=== PATIENT | female | born 1980 | race Two or more races ===

== ENCOUNTER → 2016-05-10 | Outpatient (CLI) | payer BC ==
[2016-05-10 17:38] LABS: CH 31.5; CHCM 36.8; HCT 35.7 % (34.0-46.0); HDW 3.22; MCH 31.5 pg (25.0-35.0); MCHC 36.5 g/dL (31.0-37.0); MCV 86.3 fL (80.0-100.0); Mean Platelet Volume 8.3; RBC 4.13 m/uL (3.80-5.40); RDW 13.1 % (11.5-15.5); WBC 7.1 k/uL (3.8-10.6)
[2016-05-10 18:00] LABS: Glucose 99 mg/dL (74-99); Non-African American GFR(MDRD) >60 (>60 ml/min/1.73 sqM)
[2016-05-10 18:32] LABS: Hepatitis B Surface Ag Index 0.09
[2016-05-12 06:22] LABS: Toxoplasma Antibody (IgG) <3.0 IU/mL (<7.2)
[2016-05-14 18:05] LABS: HIV-1/HIV-2 Ab Screen NONREAC (NON REAC)
== END ==
LOC: LABWHC1 16:53
PROVIDERS: ATTEND Obstetrics & Gynecology
CPT/HCPCS: 36415; 82565; 82947; 85027; 86762; 86777; 86778; 86780; 86850; 86900; 86901; 87340; 87389

== ENCOUNTER 2016-07-13 13:15 | Outpatient (CLI) | payer BC ==
[2016-07-13 14:07] LABS: Amorphous Sediment,Urine Many /hpf; Appearance,Urine Turbid (Clear); Bilirubin,Urine Negative (Negative); Glucose,Urine (UA) Negative (Negative); Ketones,Urine Negative (Negative); Leukocyte Esterase,Urine Large (Negative); Nitrite,Urine Negative (Negative); PH, Urine 5.5 (5.0-8.0); Particle Count 62325; Protein,Urine 1+ (Negative); Specific Gravity,Urine 1.023 (1.001-1.035); Squamous Epithelial Cell,Urine 7 /hpf (0-4); UA Billing (MACRO vs. MICRO) MICRO; Urobilinogen,Urine <2.0 mg/dL (<2.0); WBC,Urine 21 /hpf (0-5)
[2016-07-13] MEDS ORDERED: Rhogam IMMUNE GLOBULIN 1,500 UNIT/1 ML IM ONE (15:15)
--- NOTE | 2016-07-13 16:08 | US ---
EXAMINATION TYPE: US OB >= 14 wk fetus DATE OF EXAM: 07/13/2016 3:56 PM COMPARISON: None CLINICAL HISTORY: bleedingPt states light vaginal bleeding TECHNIQUE: Transabdominal (TA) GESTATIONAL AGE / DATING Physician Established: (22 weeks/6 days) EDC: 11/10/2016 Dates by LMP: Unknown Dates by First Scan: No prior Dates by Current Scan: (22 weeks/3 days) EDC: 11/13/2016 SURVEY IUP: Single PLACENTA: Posterior PREVIA: No Previa THU: cm CERVICAL LENGTH (transabdominal: norm > 3.0cm): 3.4 cm BIOMETRY PRESENTATION: Breech BPD: 5.5 cm 22 weeks / 6 days HC: 20.6 cm 22 weeks / 5 days AC: 18.1 cm 22 weeks / 6 days FL: 3.9 cm 22 weeks / 3 days ESTIMATED WEIGHT IN GRAMS: 526 grams ESTIMATED WEIGHT IN LBS/OZS: 1 lbs. 3 oz. WEIGHT PERCENTAGE BASED ON ESTABLISHED DATES: 34.8% HC/AC: 1.14 Normal FL/AC: 21 Normal HEART RATE: 160 bpm RHYTHM: Normal Single, viable IUP/ No abnormality visualized to account for pt's symptoms Results given to L&D at time of exam IMPRESSION: Single, viable IUP/ No abnormality visualized to account for pt's symptoms
[2016-07-13 17:16] VITALS: BP 125/90; PULSE 120; RESP 18; TEMP 96.7
== END 2016-07-13 16:45 | disposition home or self-care (01) ==
LOC: FBPOP 13:15
PROVIDERS: ATTEND Obstetrics & Gynecology
DX: O26.92 Pregnancy related conditions, unspecified, second trimester (principal); Z3A.22 22 weeks gestation of pregnancy
CPT/HCPCS: 99215; 96372; 86900; 86901; 86850; 81001; 76805; J2791

== ENCOUNTER → 2016-08-05 | Outpatient (CLI) | payer BC ==
[2016-08-05 17:07] LABS: CH 33.1; CHCM 37.1; HCT 32.5 % (34.0-46.0); HDW 3.69; HGB 11.9 gm/dL (11.4-16.0); Hyperchromasia Slight; MCH 32.9 pg (25.0-35.0); MCHC 36.5 g/dL (31.0-37.0); MCV 90.1 fL (80.0-100.0); Mean Platelet Volume 8.1; Poikilocytosis Slight; RBC 3.61 m/uL (3.80-5.40); RDW 14.1 % (11.5-15.5); WBC 13.1 k/uL (3.8-10.6)
[2016-08-05 17:10] LABS: Appearance,Urine Cloudy (Clear); Bilirubin,Urine Negative (Negative); Glucose,Urine (UA) 3+ (Negative); Ketones,Urine Negative (Negative); Leukocyte Esterase,Urine Large (Negative); Mucus,Urine Many /hpf; Nitrite,Urine Negative (Negative); PH, Urine 5.5 (5.0-8.0); Particle Count 17117; Protein,Urine 1+ (Negative); RBC,Urine 7 /hpf (0-5); Specific Gravity,Urine 1.031 (1.001-1.035); Squamous Epithelial Cell,Urine 17 /hpf (0-4); UA Billing (MACRO vs. MICRO) MICRO; WBC,Urine 65 /hpf (0-5)
== END | disposition home or self-care (01) ==
LOC: LABWHC1 15:29
PROVIDERS: ATTEND Obstetrics & Gynecology
DX: Z34.82 Encounter for supervision of other normal pregnancy, second trimester (principal)
CPT/HCPCS: 36415; 81001; 82950; 85027; 86850; 86870; 86880; 87086

== ENCOUNTER → 2016-08-16 | Outpatient (CLI) | payer BC ==
[2016-08-16 12:57] LABS: Glucose 3 Hour, Gest 88 mg/dL
== END | disposition home or self-care (01) ==
LOC: LABWHC1 08:26
PROVIDERS: ATTEND Obstetrics & Gynecology
DX: Z34.82 Encounter for supervision of other normal pregnancy, second trimester (principal); Z3A.00 Weeks of gestation of pregnancy not specified
CPT/HCPCS: 36415; 82951; 82952

== ENCOUNTER → 2016-09-13 | Outpatient (CLI) | payer BC | END | disposition home or self-care (01) | LOC: LABWHC1 07:31 | PROVIDERS: ATTEND Obstetrics & Gynecology | DX: O99.810 Abnormal glucose complicating pregnancy (principal); Z3A.00 Weeks of gestation of pregnancy not specified | CPT/HCPCS: 36415; 82951; 82952 ==

== ENCOUNTER → 2016-09-16 | Outpatient (CLI) | payer BC ==
[2016-09-16 11:19] LABS: Glucose 3 Hour, Gest 67 mg/dL
== END | disposition home or self-care (01) ==
LOC: LABWHC1 07:24
PROVIDERS: ATTEND Obstetrics & Gynecology
DX: O99.810 Abnormal glucose complicating pregnancy (principal); Z3A.00 Weeks of gestation of pregnancy not specified
CPT/HCPCS: 36415; 82951; 82952

== ENCOUNTER → 2016-10-06 | Outpatient (CLI) | payer BC | END | disposition home or self-care (01) | LOC: LABWHC1 16:19 | PROVIDERS: ATTEND Obstetrics & Gynecology | DX: Z34.90 Encounter for supervision of normal pregnancy, unspecified, unspecified trimester (principal) | CPT/HCPCS: 86850 ==

== ENCOUNTER 2016-11-16 12:28 | Inpatient (IN) | payer BC ==
[2016-11-16] MEDS ORDERED: OXYTOCIN 10 UNIT/ML 1 ML VIAL IM PRN (12:59)
[2016-11-16] MEDS ORDERED: LIDOCAINE 1% (PF) 10 MG/ML (30 ML SDV) SQ PRN (12:59)
[2016-11-16] MEDS ORDERED: CARBOPROST TROMETHAMINE 250 MCG/ML 1 ML AMP IM PRN (12:59)
[2016-11-16] MEDS ORDERED: TERBUTALINE 1 MG/ML VIAL SQ PRN (12:59)
[2016-11-16] MEDS ORDERED: METHYLERGONOVINE 0.2 MG/ML 1 ML AMP IM PRN (12:59)
[2016-11-16] MEDS ORDERED: OXYTOCIN 20 UNITS/1000 ML NS 1,000 ML IV SCH (13:00)
[2016-11-16] MEDS: LACTATED RINGERS 1,000 ML IV SCH ×2 (13:05→17:02)
[2016-11-16 13:20] LABS: Basophils % (A) 0 %; CH 32.8; CHCM 37.2; Eosinophils # (A) 0.1 k/uL (0-0.7); Eosinophils % (A) 1 %; HCT 35.6 % (34.0-46.0); HDW 3.43; HGB 12.4 gm/dL (11.4-16.0); Hyperchromasia Slight; Luc # (Auto) 0.24; Luc % (Auto) 2; Lymphocytes # (A) 1.6 k/uL (1.0-4.8); Lymphocytes % (A) 11 %; MCH 30.9 pg (25.0-35.0); MCHC 34.8 g/dL (31.0-37.0); MCV 88.8 fL (80.0-100.0); Mean Platelet Volume 8.7; Monocytes # (A) 0.8 k/uL (0-1.0); Monocytes % (A) 6 %; Neutrophils # (A) 11.6 k/uL (1.3-7.7); Neutrophils % (A) 81 %; Poikilocytosis Slight; RBC 4.01 m/uL (3.80-5.40); WBC 14.3 k/uL (3.8-10.6)
[2016-11-16 13:34] VITALS: BMI 25.8
--- NOTE | 2016-11-16 16:24 | P.HPOB ---
History of Present Illness H&P Date: 11/16/16 Chief Complaint: Uterine at term:HANK Marquez is a 36-year-old at 40 weeks gestation who started leaking fluid at approximately 80 on this morning. She was seen in my office and noted to have a oligohydramnios on ultrasound was sent to labor and delivery where an amnio sure was positive. Her course has been compensated by spotting throughout the it is occurred all the way up until approximately 28 weeks when it finally slow down. She did initially feel her Glucola screen but subsequent screens and an evaluation with maternal medicine revealed her to not be gestationally diabetic. Her course otherwise was fine and she is done very well the last several weeks. She is dilated to 3/2 cm 100% effaced -1 station. heart tones were in the 130s to 140s and reactive. Pertinent labs did include A- blood type Rh antibody was negative, rubella immune, hepatitis B surface antigen as well as RPR and GBS were all negative. On physical exam vital signs are stable and afebrile. Heart regular, lungs clear, extremities without pain. Osteopathic exams unremarkable. Gravid uterus is noted. Assessment intrauterine at term. Plan expect spontaneous vaginal delivery. Past Medical History Past Medical History: No Reported History History of Any Multi-Drug Resistant Organisms: None Reported Additional Past Surgical History / Comment(s): cyst as a child Additional Psychological History / Comment(s): undiagnosed anxiety issues/ depression Smoking Status: Never smoker Past Alcohol Use History: None Reported Past Drug Use History: None Reported - Past Family History Mother Additional Family Medical History / Comment(s): mother has lymphoma- in remission Medications and Allergies Home Medications Medication Instructions Recorded Confirmed Type No.77/Iron Asp Gly/FA 1 tab PO DAILY 07/13/16 11/16/16 History [Prenate Star Tablet] Amoxicillin 500 mg PO Q8H 11/16/16 11/16/16 History Allergies Allergy/AdvReac Type Severity Reaction Status Date / Time No Known Allergies Allergy Verified 11/16/16 12:56 Exam Osteopathic Statement: *. No significant issues noted on an osteopathic structural exam other than those noted in the History and Physical/Consult. - Vital Signs Vital signs: Vital Signs Temp Pulse Resp BP Pulse Ox 11/16/16 13:18 97.5 F L 103 H 18 134/82 97 Intake and Output 11/16/16 11/16/16 11/16/16 06:59 14:59 22:59 Other: # Voids 1 Weight 72.575 kg Patient Weight 11/17/16 06:59 Weight 72.575 kg Results Result Diagrams: 11/16/16 13:08 Abnormal Lab Results - Last 24 Hours (Table) 11/16/16 Range/Units 13:08 WBC 14.3 H (3.8-10.6) k/uL Neutrophils # 11.6 H (1.3-7.7) k/uL
[2016-11-16] MEDS ORDERED: BUPIVACAINE (PF) 0.25% 30 ML VIAL ONE (16:38)
[2016-11-16] MEDS ORDERED: SODIUM CHLORIDE 0.9% 100 ML BAG ONE (16:38)
[2016-11-16] MEDS ORDERED: fentaNYL (PF) 50 MCG/ML 5 ML AMP ONE (16:38)
[2016-11-17] MEDS: AMOXICILLIN 500 MG PO SCH ×3 (00:36→18:36)
[2016-11-17] MEDS ORDERED: AMPICILLIN 2,000 MG in SODIUM CHLORIDE 0.9% 100 ML IVPB ONE (01:00)
[2016-11-17] MEDS: LACTATED RINGERS 1,000 ML IV SCH (03:06)
[2016-11-17] MEDS ORDERED: AMPICILLIN 1,000 MG in SODIUM CHLORIDE 0.9% 50 ML IVPB SCH (05:00)
[2016-11-17] MEDS ORDERED: diphenhydrAMINE 50 MG/ML 1 ML VIAL IVP PRN ×4 (05:17→05:27)
[2016-11-17] MEDS ORDERED: diphenhydrAMINE 25 MG CAP PO PRN ×2 (05:17→05:27)
[2016-11-17] MEDS ORDERED: ZOLPIDEM 5 MG TAB PO PRN ×2 (05:17→05:27)
[2016-11-17] MEDS ORDERED: SIMETHICONE 80 MG CHEWABLE PO PRN ×2 (05:17→05:27)
[2016-11-17] MEDS ORDERED: LANOLIN CREAM 5 GM TUBE TOPICAL PRN ×2 (05:17→05:27)
[2016-11-17] MEDS ORDERED: diphenhydrAMINE 50 MG CAP PO PRN ×2 (05:17→05:27)
[2016-11-17] MEDS ORDERED: HYDROCORTISONE 2.5% RECTAL CREAM 30 GM TUBE RECTAL PRN ×2 (05:17→05:27)
[2016-11-17] MEDS ORDERED: WITCH HAZEL 1 EACH MED..PAD TOPICAL PRN ×2 (05:17→05:27)
[2016-11-17] MEDS ORDERED: Acetaminophen-Codeine 300-30mg TAB PO PRN ×2 (05:17)
[2016-11-17] MEDS ORDERED: BENZOCAINE/MENTHOL SPRAY 1 GM/SPRAY AEROSOL TOPICAL PRN ×2 (05:17→05:27)
[2016-11-17] MEDS ORDERED: IBUPROFEN 600 MG TAB PO PRN (05:17)
[2016-11-17] MEDS ORDERED: Rhogam IMMUNE GLOBULIN 1,500 UNIT/1 ML IM ONE (05:17)
[2016-11-17] MEDS ORDERED: ACETAMINOPHEN TAB 325 MG TAB PO PRN ×2 (05:17→05:27)
--- NOTE | 2016-11-17 05:23 | P.PROBDLV ---
Vaginal Delivery Note - . Vaginal Delivery Note: 36-year-old presents at 40 weeks 6 days with spontaneous rupture membranes at 8 AM on 11/16/2016. She was 3 cm dilated 90% effaced and -1 station. She is roselia irregularly. heart tones 140-145 with moderate variability and reactive. Pitocin augmentation was started. When she was uncomfortable she did get an epidural. She progressed slowly throughout the day and night. Her cervix was completely dilated around 1:30 in the morning on 11/17/2016. Ampicillin had been started for prolonged rupture of membranes. Patient was not pushing effectively and she did labor down. The epidural was turned off. She then did push for a few hours, and delivered a viable female over midline episiotomy at 4:55 AM. Head delivered OA, nuchal cord 2 easily reduced, anterior shoulder which was the left shoulder delivered with gentle downward traction followed by posterior shoulder and rest of body. Nose and mouth bulb suctioned, cord clamped and cut, placed on mother's abdomen. Apgars 9, 9, weight 6 lbs. 5 oz. Placenta delivered spontaneously, intact with three-vessel cord at 4:57 AM. Vagina, cervix, and perineum were inspected. Second-degree midline episiotomy was repaired with 3- 0 Vicryl. Estimated blood loss 200 mL. Mother and baby in stable condition.
[2016-11-17] MEDS ORDERED: OXYTOCIN 20 UNITS/1000 ML NS 1,000 ML IV SCH (05:30)
[2016-11-17] MEDS: IBUPROFEN 600 MG TAB PO PRN ×2 (05:56→15:32)
[2016-11-17] MEDS ORDERED: SENNOSIDES-DOCUSATE SODIUM 1 EACH TAB PO SCH (08:00)
[2016-11-17] MEDS: Acetaminophen-Codeine 300-30mg TAB PO PRN ×2 (10:00→18:36)
[2016-11-17] MEDS: SENNOSIDES-DOCUSATE SODIUM 1 EACH TAB PO SCH ×3 (11:57→21:01)
[2016-11-17] MEDS ORDERED: DIPH,PERTUS(ACELL)TETVAC-LF 0.5 ML VIAL IM ONE (17:50)
[2016-11-18] MEDS: IBUPROFEN 600 MG TAB PO PRN ×4 (00:09→19:42)
[2016-11-18] MEDS: AMOXICILLIN 500 MG PO SCH ×3 (00:09→17:48)
[2016-11-18] MEDS: SENNOSIDES-DOCUSATE SODIUM 1 EACH TAB PO SCH ×2 (07:50→19:42)
[2016-11-18] MEDS: Acetaminophen-Codeine 300-30mg TAB PO PRN ×3 (08:38→23:04)
[2016-11-19] MEDS: Acetaminophen-Codeine 300-30mg TAB PO PRN ×2 (06:35→18:41)
[2016-11-19 08:14] VITALS: RESP 16; TEMP 97.5
[2016-11-19] MEDS: SENNOSIDES-DOCUSATE SODIUM 1 EACH TAB PO SCH ×2 (08:15→18:41)
--- NOTE | 2016-11-19 09:06 | P.DS ---
Providers Date of admission: 11/16/16 12:28 Expected date of discharge: 11/19/16 Attending physician: Judd Moran [facility] Course: Care is doing very well day 2. She is involuting, voiding, and she is tolerating her diet. She voices no complaints. Vital signs stable and afebrile. Heart regular, lungs clear, extremities without pain. Prescription for Motrin has been provided. All the questions are answered for her prior to discharge. She is stable for discharge at this time and will follow up with me in 6 weeks. Patient Condition at Discharge: Good Plan - Discharge Summary New Discharge Prescriptions: New Ibuprofen [Motrin] 600 mg PO Q6HR PRN #30 tab PRN Reason: Pain No Action No.77/Iron Asp Gly/FA [Prenate Star Tablet] 1 tab PO DAILY Amoxicillin 500 mg PO Q8H Discharge Medication List No.77/Iron Asp Gly/FA [Prenate Star Tablet] 1 tab PO DAILY 07/13/16 [ History] Amoxicillin 500 mg PO Q8H 11/16/16 [History] Ibuprofen [Motrin] 600 mg PO Q6HR PRN #30 tab 11/19/16 [Rx] Follow up Appointment(s)/Referral(s): Judd Moran DO [Doctor of Osteopathic Medicine] - 1 Week Activity/Diet/Wound Care/Special Instructions: No heavy lifting, limit stairs and driving and pelvic rest. If any high temperatures, heavy bleeding, or severe pain call my office Discharge Disposition: HOME SELF-CARE
[2016-11-19] MEDS: IBUPROFEN 600 MG TAB PO PRN (11:13)
[2016-11-19 17:20] VITALS: BP 111/65; PULSE 93
== END 2016-11-19 19:00 | disposition home or self-care (01) | DRG 775 ==
LOC: 4FBP 12:28
PROVIDERS: ADMIT Obstetrics & Gynecology; ATTEND Obstetrics & Gynecology
PROC: 10E0XZZ Delivery of Products of Conception, External Approach (ICD-10-PCS; principal; 2016-11-17)
PROC: 0W8NXZZ Division of Female Perineum, External Approach (ICD-10-PCS; 2016-11-17)
PROC: 00HU33Z Insertion of Infusion Device into Spinal Canal, Percutaneous Approach (ICD-10-PCS; 2016-11-17)
PROC: 3E0R3CZ (ICD-10-PCS; 2016-11-17)
DX: O41.03X0 Oligohydramnios, third trimester, not applicable or unspecified (principal); O42.92 Full-term premature rupture of membranes, unspecified as to length of time between rupture and onset of labor; Z37.0 Single live birth; O69.81X0 Labor and delivery complicated by cord around neck, without compression, not applicable or unspecified; Z3A.40 40 weeks gestation of pregnancy; Z80.7 Family history of other malignant neoplasms of lymphoid, hematopoietic and related tissues
CPT/HCPCS: 85025; 88307; 90715

== ENCOUNTER 2020-05-10 14:55 | Emergency (ER) | payer BC ==
[2020-05-10 15:00] VITALS: RESP 18; TEMP 98.2
[2020-05-10] MEDS ORDERED: SODIUM CHLORIDE 0.9% 1,000 ML IV ONE (15:50)
[2020-05-10 16:24] LABS: HCT 36.5 % (34.0-46.0); HGB 12.8 gm/dL (11.4-16.0); Hyperchromasia Slight; MCH 30.9 pg (25.0-35.0); MCHC 35.1 g/dL (31.0-37.0); Platelet Count 163 k/uL (150-450); Poikilocytosis Slight; RBC 4.14 m/uL (3.80-5.40); WBC 19.6 k/uL (3.8-10.6)
--- NOTE | 2020-05-10 16:35 | US ---
EXAMINATION TYPE: US OB >= 14 wk fetus DATE OF EXAM: 05/10/2020 COMPARISON: None CLINICAL HISTORY: pain Pt states vaginal bleeding and cramping TECHNIQUE: Transabdominal (TA) GESTATIONAL AGE / DATING Physician Established: Not yet established Dates by LMP: (15 weeks/3 days) EDC: 10/29/2020 Dates by First Scan: No prior Dates by Current Scan: (16 weeks/2 days) EDC: 10/23/2020 SURVEY IUP: Single PLACENTA: Anterior PREVIA: Low Lying THU: 15.2 cm Normal CERVICAL LENGTH (transabdominal: norm > 3.0cm): 3.1 cm BIOMETRY PRESENTATION: Breech BPD: 3.3 cm 16 weeks / 3 days HC: 12.2 cm 16 weeks / 0 days AC: 10.1 cm 16 weeks / 1 days FL: 2.0 cm 15 weeks / 6 days ESTIMATED WEIGHT IN GRAMS: 141.8 grams ESTIMATED WEIGHT IN LBS/OZ: 0 lbs. 5 oz. WEIGHT PERCENTAGE BASED ON ESTABLISHED DATES: 78.8% HC/AC: 1.20 Normal FL/AC: 19 Normal HEART RATE: 166 bpm RHYTHM: Normal Single, viable IUP/ Probable low-lying placenta, otherwise no abnormality visualized at this time IMPRESSION: Placenta is 1.2 cm from the internal cervical os. The ultrasound gestational age is 16 weeks and 2 days.
[2020-05-10 17:19] LABS: ALT 11 U/L (4-34); AST 21 U/L (14-36); African American GFR (CKD) >90 (>60 ml/min/1.73 sqM); Albumin 4.4 g/dL (3.5-5.0); Alkaline Phosphatase 122 U/L (38-126); Anion Gap 15 mmol/L; Blood Urea Nitrogen 10 mg/dL (7-17); Calcium 9.4 mg/dL (8.4-10.2); Carbon Dioxide 17 mmol/L (22-30); Chloride 99 mmol/L (98-107); Glucose 114 mg/dL (74-99); Non-African American GFR(CKD) >90 (>60 ml/min/1.73 sqM); Potassium 3.9 mmol/L (3.5-5.1); Sodium 131 mmol/L (137-145); Total Bilirubin 0.9 mg/dL (0.2-1.3); Total Protein 7.5 g/dL (6.3-8.2)
[2020-05-10] MEDS ORDERED: Rhogam IMMUNE GLOBULIN 1,500 UNIT/1 ML IM ONE (17:34)
--- NOTE | 2020-05-10 17:56 | ED ---
General Adult HPI - General Chief complaint: Vaginal Bleeding Stated complaint: 15Weeks/Bleeding Time Seen by Provider: 05/10/20 15:14 Source: patient Mode of arrival: ambulatory Limitations: no limitations - History of Present Illness Initial comments: 39-year-old female patient presents to the emergency department today for evaluation of vaginal bleeding and . Patient blew she is approximately 15 weeks. She has not yet seen [facility] [employer] is waiting for an appointment. No previous ultrasound. She is G3, P1, A1 with a previous miscarriage in 2014. States that she started having some mild bleeding a couple of days ago. States it became heavier today more like a period. Reports passage of tiny clots. Denies any dizziness or weakness. Reports very vague lower abdominal cramping. Denies any hematuria, dysuria, urinary frequency, urinary urgency. Has use of anticoagulant antiplatelet medications. Denies history of leaving disorder. Patient denies any recent rash, fever, chills, cough, shortness of breath, chest pain, abdominal pain, nausea, vomiting, diarrhea, constipation, back pain, numbness, tingling, dizziness, weakness, headache, visual changes, or any other complaints. - Related Data Home Medications Medication Instructions Recorded Confirmed No.77/Iron Asp Gly/FA 1 tab PO DAILY 07/13/16 11/16/16 [Prenate Star Tablet] Amoxicillin 500 mg PO Q8H 11/16/16 11/16/16 Previous Rx's Medication Instructions Recorded Ibuprofen [Motrin] 600 mg PO Q6HR PRN #30 tab 11/19/16 Cephalexin [Keflex] 500 mg PO Q6H #28 cap 05/10/20 Allergies Allergy/AdvReac Type Severity Reaction Status Date / Time No Known Allergies Allergy Verified 05/10/20 15:00 Review of Systems ROS Statement: Those systems with pertinent positive or pertinent negative responses have been documented in the HPI. ROS Other: All systems not noted in ROS Statement are negative. Past Medical History Past Medical History: Asthma History of Any Multi-Drug Resistant Organisms: None Reported Past Surgical History: No Surgical Hx Reported Additional Past Surgical History / Comment(s): cyst as a child Past Psychological History: No Psychological Hx Reported Smoking Status: Never smoker Past Alcohol Use History: None Reported Past Drug Use History: None Reported - Past Family History Mother Additional Family Medical History / Comment(s): mother has lymphoma- in remission General Exam Limitations: no limitations General appearance: alert, in no apparent distress, other (Physical well- developed, well-nourished adult male patient in no acute distress. Vital signs upon presentation are temperature 98.2F, pulse 117, respirations 18, blood pressure 118/76, pulse ox 98% on room air.) Eye exam: Present: normal appearance, PERRL, EOMI. Absent: scleral icterus, conjunctival injection, periorbital swelling ENT exam: Present: normal exam, normal oropharynx, mucous membranes moist Respiratory exam: Present: normal lung sounds bilaterally. Absent: respiratory distress, wheezes, rales, rhonchi, stridor Cardiovascular Exam: Present: regular rate, normal rhythm, normal heart sounds. Absent: systolic murmur, diastolic murmur, rubs, gallop, clicks GI/Abdominal exam: Present: soft, normal bowel sounds. Absent: distended, tenderness, guarding, rebound, rigid Back exam: Present: normal inspection. Absent: CVA tenderness (R), CVA tenderness (L) Neurological exam: Present: alert, oriented X3, CN II-XII intact Psychiatric exam: Present: normal affect, normal mood Skin exam: Present: warm, dry, intact, normal color. Absent: rash Course Vital Signs 05/10/20 14:58 Temperature 98.2 F Pulse Rate 117 H Respiratory 18 Rate Blood Pressure 118/76 O2 Sat by Pulse 98 Oximetry Medical Decision Making - Medical Decision Making 39-year-old female patient presents to the emergency department today for evaluation of vaginal bleeding. Reports being 15 weeks . She is G3, P1, A1. Physical examination revealed soft nontender abdomen. Pelvic exam did reveal mild brownish vaginal bleeding. Cervical os is closed. Labs reviewed and did reveal white blood cell count at 19.2. Urinalysis was positive for infection. ABO Rh is A-. She is given IV dose of Rocephin for UTI. We'll start Keflex. Ultrasound was obtained and showed a viable intrauterine with a low-lying placenta at 1.2 cm from the cervical os. I did discuss findings and results with the patient. She is instructed to maintain pelvic rest due to low-lying placenta until cleared by her [employer]. Return parameters were discussed in detail. She verbalizes understanding and agrees with this plan. Case discussed with my attending Dr. George. - Lab Data Result diagrams: 05/10/20 16:10 05/10/20 16:10 Lab Results 05/10/20 05/10/20 05/10/20 Range/Units 16:10 16:10 16:10 WBC 19.6 H (3.8-10.6) k/uL RBC 4.14 (3.80-5.40) m/uL Hgb 12.8 (11.4-16.0) gm/dL Hct 36.5 (34.0-46.0) % MCV 88.0 (80.0-100.0) fL MCH 30.9 (25.0-35.0) pg MCHC 35.1 (31.0-37.0) g/dL RDW 14.0 (11.5-15.5) % Plt Count 163 (150-450) k/uL MPV 8.0 Neutrophils % Not Reportable Neutrophils % (Manual) 93 % Lymphocytes % Not Reportable Lymphocytes % (Manual) 3 % Monocytes % Not Reportable Monocytes % (Manual) 4 % Eosinophils % Not Reportable Basophils % Not Reportable Neutrophils # Not Reportable Neutrophils # (Manual) 18.23 H (1.3-7.7) k/uL Lymphocytes # Not Reportable Lymphocytes # (Manual) 0.59 L (1.0-4.8) k/uL Monocytes # Not Reportable Monocytes # (Manual) 0.78 (0-1.0) k/uL Eosinophils # Not Reportable Basophils # Not Reportable Nucleated RBCs 0 (0-0) /100 WBC Manual Slide Review Performed Hyperchromasia Slight Poikilocytosis Slight Sodium 131 L (137-145) mmol/L Potassium 3.9 (3.5-5.1) mmol/L Chloride 99 (98-107) mmol/L Carbon Dioxide 17 L (22-30) mmol/L Anion Gap 15 mmol/L BUN 10 (7-17) mg/dL Creatinine 0.55 (0.52-1.04) mg/dL Est GFR (CKD-EPI)AfAm >90 (>60 ml/min/1.73 sqM) Est GFR (CKD-EPI)NonAf >90 (>60 ml/min/1.73 sqM) Glucose 114 H (74-99) mg/dL Calcium 9.4 (8.4-10.2) mg/dL Total Bilirubin 0.9 (0.2-1.3) mg/dL AST 21 (14-36) U/L ALT 11 (4-34) U/L Alkaline Phosphatase 122 (38-126) U/L Total Protein 7.5 (6.3-8.2) g/dL Albumin 4.4 (3.5-5.0) g/dL HCG, Quant 94053.7 mIU/mL Urine Color Yellow Urine Appearance Cloudy H (Clear) Urine pH 6.0 (5.0-8.0) Ur Specific Emerson 1.012 (1.001-1.035) Urine Protein Trace H (Negative) Urine Glucose (UA) Negative (Negative) Urine Ketones 3+ H (Negative) Urine Blood Moderate H (Negative) Urine Nitrite Negative (Negative) Urine Bilirubin Negative (Negative) Urine Urobilinogen <2.0 (<2.0) mg/dL Ur Leukocyte Esterase Large H (Negative) Urine RBC 5 (0-5) /hpf Urine WBC 68 H (0-5) /hpf Urine WBC Clumps Few H (None) /hpf Ur Squamous Epith Cells 5 H (0-4) /hpf Urine Bacteria Rare H (None) /hpf Urine Mucus Many H (None) /hpf Blood Type Blood Type Recheck Bld Type Recheck Status Antibody Screen Spec Expiration Date 05/10/20 Range/Units 16:12 WBC (3.8-10.6) k/uL RBC (3.80-5.40) m/uL Hgb (11.4-16.0) gm/dL Hct (34.0-46.0) % MCV (80.0-100.0) fL MCH (25.0-35.0) pg MCHC (31.0-37.0) g/dL RDW (11.5-15.5) % Plt Count (150-450) k/uL MPV Neutrophils % Neutrophils % (Manual) % Lymphocytes % Lymphocytes % (Manual) % Monocytes % Monocytes % (Manual) % Eosinophils % Basophils % Neutrophils # Neutrophils # (Manual) (1.3-7.7) k/uL Lymphocytes # Lymphocytes # (Manual) (1.0-4.8) k/uL Monocytes # Monocytes # (Manual) (0-1.0) k/uL Eosinophils # Basophils # Nucleated RBCs (0-0) /100 WBC Manual Slide Review Hyperchromasia Poikilocytosis Sodium (137-145) mmol/L Potassium (3.5-5.1) mmol/L Chloride (98-107) mmol/L Carbon Dioxide (22-30) mmol/L Anion Gap mmol/L BUN (7-17) mg/dL Creatinine (0.52-1.04) mg/dL Est GFR (CKD-EPI)AfAm (>60 ml/min/1.73 sqM) Est GFR (CKD-EPI)NonAf (>60 ml/min/1.73 sqM) Glucose (74-99) mg/dL Calcium (8.4-10.2) mg/dL Total Bilirubin (0.2-1.3) mg/dL AST (14-36) U/L ALT (4-34) U/L Alkaline Phosphatase (38-126) U/L Total Protein (6.3-8.2) g/dL Albumin (3.5-5.0) g/dL HCG, Quant mIU/mL Urine Color Urine Appearance (Clear) Urine pH (5.0-8.0) Ur Specific Emerson (1.001-1.035) Urine Protein (Negative) Urine Glucose (UA) (Negative) Urine Ketones (Negative) Urine Blood (Negative) Urine Nitrite (Negative) Urine Bilirubin (Negative) Urine Urobilinogen (<2.0) mg/dL Ur Leukocyte Esterase (Negative) Urine RBC (0-5) /hpf Urine WBC (0-5) /hpf Urine WBC Clumps (None) /hpf Ur Squamous Epith Cells (0-4) /hpf Urine Bacteria (None) /hpf Urine Mucus (None) /hpf Blood Type A Negative Blood Type Recheck A Neg Bld Type Recheck Status No Antibody Screen NEGATIVE Spec Expiration Date 05/13/2020 - 2311 - Radiology Data Radiology results: report reviewed, image reviewed Ultrasound of the fetus is obtained. Report reviewed in its entirety. Impression by Dr. Beatty shows single viable intrauterine . Placenta is 1.2 cm with internal cervical os. Ultrasound just a show age is 16 weeks and 2 days. Heart rate is 166. Disposition Clinical Impression: Low-lying placenta, Vaginal bleeding during , Urinary tract infection Disposition: HOME SELF-CARE Condition: Good Instructions (If sedation given, give patient instructions): Rh (By injection), Urinary Tract Infection in (ED) Additional Instructions: Pelvic rest until you're cleared by her [facility]. Complete antibiotic prescription in full for urinary tract infection. Increase fluids. Rest. Follow-up with [facility] [employer] for recheck as soon as possible. Return to the emergency department for any new, worsening, or concerning symptoms. Prescriptions: Cephalexin [Keflex] 500 mg PO Q6H #28 cap Is patient prescribed a controlled substance at d/c from ED?: No Referrals: Joaquin Garcia III, MD [Primary Care Provider] - 1-2 days Time of Disposition: 18:35
[2020-05-10 18:04] LABS: HCG,Quantitative Serum 32410.7 mIU/mL
[2020-05-10 18:16] LABS: Appearance,Urine Cloudy (Clear); Bacteria,Urine Rare /hpf; Bilirubin,Urine Negative (Negative); Blood,Urine Moderate (Negative); Color,Urine Yellow; Glucose,Urine (UA) Negative (Negative); Ketones,Urine 3+ (Negative); Leukocyte Esterase,Urine Large (Negative); Mucus,Urine Many /hpf; Nitrite,Urine Negative (Negative); Protein,Urine Trace (Negative); RBC,Urine 5 /hpf (0-5); Specific Gravity,Urine 1.012 (1.001-1.035); Squamous Epithelial Cell,Urine 5 /hpf (0-4); Urobilinogen,Urine <2.0 mg/dL (<2.0); WBC,Urine 68 /hpf (0-5)
[2020-05-10] MEDS ORDERED: cefTRIAXone IN SWFI 1,000 MG/10 ML SYRINGE IVP STA (18:21)
[2020-05-10 18:23] LABS: Lymphocytes # (M) 0.59 k/uL (1.0-4.8); Monocytes # (M) 0.78 k/uL (0-1.0); Neutrophils # (M) 18.23 k/uL (1.3-7.7); Neutrophils % (M) 93 %; Nucleated Red Blood Cells 0 /100 WBC (0-0); Total Cells Counted 100
[2020-05-10 18:48] VITALS: BP 128/78; PULSE 95
== END 2020-05-10 18:48 | disposition home or self-care (01) ==
LOC: EC 14:55
DX: O20.9 Hemorrhage in early pregnancy, unspecified (principal); O86.20 Urinary tract infection following delivery, unspecified; O44.52 Low lying placenta with hemorrhage, second trimester; O99.512 Diseases of the respiratory system complicating pregnancy, second trimester; J45.909 Unspecified asthma, uncomplicated; Z79.1 Long term (current) use of non-steroidal anti-inflammatories (NSAID); Z3A.16 16 weeks gestation of pregnancy
CPT/HCPCS: 36415; 86900; 86901; 80053; 85025; 86850; 81001; 84702; 87086; 76805; 99284; 96374; 96361; 96372; J2791; J0696

== ENCOUNTER 2020-05-12 08:38 | Inpatient (IN) | payer BC ==
[2020-05-12 05:54] LABS: Basophils % (A) 0 %; Eosinophils # (A) 0.3 k/uL (0-0.7); Eosinophils % (A) 1 %; HCT 35.8 % (34.0-46.0); HGB 12.7 gm/dL (11.4-16.0); Hyperchromasia Moderate; Lymphocytes # (A) 0.5 k/uL (1.0-4.8); Lymphocytes % (A) 3 %; MCH 30.8 pg (25.0-35.0); MCHC 35.5 g/dL (31.0-37.0); MCV 86.8 fL (80.0-100.0); Mean Platelet Volume 8.2; Monocytes % (A) 5 %; Neutrophils # (A) 18.1 k/uL (1.3-7.7); Neutrophils % (A) 90 %; Platelet Count 117 k/uL (150-450); Poikilocytosis Slight; RBC 4.13 m/uL (3.80-5.40); RDW 13.9 % (11.5-15.5); WBC 20.1 k/uL (3.8-10.6)
[2020-05-12 06:57] LABS: ALT 12 U/L (4-34); AST 16 U/L (14-36); African American GFR (CKD) >90 (>60 ml/min/1.73 sqM); Albumin 3.7 g/dL (3.5-5.0); Alkaline Phosphatase 139 U/L (38-126); Anion Gap 13 mmol/L; Blood Urea Nitrogen 4 mg/dL (7-17); Calcium 9.1 mg/dL (8.4-10.2); Carbon Dioxide 18 mmol/L (22-30); Chloride 97 mmol/L (98-107); Glucose 132 mg/dL (74-99); Non-African American GFR(CKD) >90 (>60 ml/min/1.73 sqM); Potassium 3.6 mmol/L (3.5-5.1); Sodium 128 mmol/L (137-145); Total Bilirubin 1.5 mg/dL (0.2-1.3); Total Protein 6.7 g/dL (6.3-8.2)
--- NOTE | 2020-05-12 07:52 | US ---
EXAMINATION TYPE: US OB limited DATE OF EXAM: 05/12/2020 COMPARISON: NONE CLINICAL HISTORY: 39-year-old female PROM, in active labor at time of exam EXAM PERFORMED: OBTA GESTATIONAL AGE / DATING Physician Established: (16 weeks/4 days) EDC: 10/23/2020 Dates by Current Scan: No growth performed on today?s study per ordering physician SURVEY PLACENTA: limited assessment showed placenta within fundus of UT PREVIA: unable to clearly determine due to fetus within cervical canal THU: 0 cm, no pocket of fluid seen to measure Ultrasound evidence of premature rupture of membranes? YES CERVICAL LENGTH (transabdominal: norm > 3.0cm): unable to determine due to fetus within cervical can al HEART RATE: cardiac motion visualized with color doppler but unable to assess bpm due to patient cry ing and unable to hold still due to pain IMPRESSION: Very limited exam. Active labor with the head entering the cervical canal. No amniotic fluid se en.
[2020-05-12] MEDS ORDERED: TERBUTALINE 1 MG/ML VIAL SQ PRN (08:48)
[2020-05-12] MEDS ORDERED: OXYTOCIN 10 UNIT/ML 1 ML VIAL IM PRN (08:48)
[2020-05-12] MEDS ORDERED: CARBOPROST TROMETHAMINE 250 MCG/ML 1 ML AMP IM PRN (08:48)
[2020-05-12] MEDS ORDERED: METHYLERGONOVINE 0.2 MG/ML 1 ML AMP IM PRN (08:48)
[2020-05-12] MEDS ORDERED: LIDOCAINE 0.5% (PF) 5 MG/ML (50 ML SDV) SQ PRN (08:48)
[2020-05-12] MEDS ORDERED: BUTORPHANOL 1 MG/ML 1 ML VIAL IV PRN (08:50)
[2020-05-12] MEDS ORDERED: LACTATED RINGERS 1,000 ML IV SCH (09:00)
[2020-05-12] MEDS ORDERED: ACETAMINOPHEN TAB 500 MG TAB PO STA (09:44)
[2020-05-12] MEDS ORDERED: CARBOPROST TROMETHAMINE 250 MCG/ML 1 ML AMP IM ONE (09:44)
[2020-05-12] MEDS ORDERED: LOPERAMIDE 2 MG CAP PO STA (09:47)
[2020-05-12 10:08] VITALS: RESP 18
--- NOTE | 2020-05-12 12:24 | P.HPOB ---
History of Present Illness H&P Date: 05/12/20 Chief Complaint: miscarriage 39 year old presents at 16 weeks actively delivering. She presented to ER at 430am complaining of bleeding and contractions. Her water broke at 8am and then I was called at 820. US had showed heart tones. I checked her cervix and baby was in vagina while head of baby was still in cervix/lower uterine segment. no activity noted at this time. she was brought to L&D. Review of Systems All systems: negative Constitutional: Denies chills, Denies fever Eyes: denies blurred vision, denies pain Ears, nose, mouth and throat: Denies headache, Denies sore throat Cardiovascular: Denies chest pain, Denies shortness of breath Respiratory: Denies cough Gastrointestinal: Denies abdominal pain, Denies diarrhea, Denies nausea, Denies vomiting Genitourinary: Denies dysuria, Denies hematuria Musculoskeletal: Denies myalgias Integumentary: Denies pruritus, Denies rash Neurological: Denies numbness, Denies weakness Psychiatric: Denies anxiety, Denies depression Endocrine: Denies fatigue, Denies weight change Past Medical History Past Medical History: Asthma Additional Past Medical History / Comment(s): OB history: first was an SAB. Second full term vaginal delivery. This is her third . She had rhogam yesterday after some vaginal bleeding in the ER and was sent home. History of Any Multi-Drug Resistant Organisms: None Reported Past Surgical History: No Surgical Hx Reported Additional Past Surgical History / Comment(s): cyst as a child Past Anesthesia/Blood Transfusion Reactions: No Reported Reaction Past Psychological History: No Psychological Hx Reported Additional Psychological History / Comment(s): undiagnosed anxiety issues/ depression Smoking Status: Never smoker Past Alcohol Use History: None Reported Past Drug Use History: None Reported - Past Family History Mother Additional Family Medical History / Comment(s): mother has lymphoma- in remission Medications and Allergies Home Medications Medication Instructions Recorded Confirmed Type Cephalexin [Keflex] 500 mg PO Q6H #28 cap 05/10/20 05/12/20 Rx Albuterol Inhaler [Ventolin Hfa 2 puff INHALATION RT-Q4H PRN 05/12/20 05/12/20 History Inhaler] Allergies Allergy/AdvReac Type Severity Reaction Status Date / Time No Known Allergies Allergy Verified 05/12/20 08:50 Exam Osteopathic Statement: *. No significant issues noted on an osteopathic structural exam other than those noted in the History and Physical/Consult. Vital Signs Temp Pulse Resp BP Pulse Ox 05/12/20 11:48 96.7 F L 90 18 96/60 05/12/20 11:25 107 H 18 118/65 05/12/20 10:55 92 18 108/57 05/12/20 10:40 99 106/72 05/12/20 10:25 98.0 F 103 H 18 109/70 97 05/12/20 10:10 100 104/60 05/12/20 09:55 97.6 F 99 18 123/76 05/12/20 08:47 97.6 F 99 16 123/76 Intake and Output 05/11/20 05/12/20 05/12/20 22:59 06:59 14:59 Output Total 300 Balance -300 Output: Urine 300 Other: # Voids 1 Weight 74.843 kg HEart: RRR Lungs: CTAB Abdomen: soft, nontender Extremeties: neg aylin's Assessment and Plan (1) Miscarriage Current Visit: No Status: Acute Code(s): O03.9 - COMPLETE OR UNSP SPONTANEOUS WITHOUT COMPLICATION SNOMED Code(s): 90863745 Plan: 1. expectant management 2. anticipate vaginal delivery 3. discussed possible need for d&C if placenta does not deliver
[2020-05-12] MEDS ORDERED: HYDROCORTISONE 2.5% RECTAL CREAM 30 GM TUBE RECTAL PRN (12:25)
[2020-05-12] MEDS ORDERED: BENZOCAINE/MENTHOL SPRAY 1 GM/SPRAY AEROSOL TOPICAL PRN (12:25)
[2020-05-12] MEDS ORDERED: ZOLPIDEM 5 MG TAB PO PRN (12:25)
[2020-05-12] MEDS ORDERED: diphenhydrAMINE 50 MG/ML 1 ML VIAL IVP PRN ×2 (12:25)
[2020-05-12] MEDS ORDERED: SIMETHICONE 80 MG CHEWABLE PO PRN (12:25)
[2020-05-12] MEDS ORDERED: LANOLIN CREAM 5 GM TUBE TOPICAL PRN (12:25)
[2020-05-12] MEDS ORDERED: diphenhydrAMINE 25 MG CAP PO PRN (12:25)
[2020-05-12] MEDS ORDERED: diphenhydrAMINE 50 MG CAP PO PRN (12:25)
[2020-05-12] MEDS ORDERED: ACETAMINOPHEN TAB 325 MG TAB PO PRN (12:25)
--- NOTE | 2020-05-12 12:25 | P.PROBDLV ---
Vaginal Delivery Note - . Vaginal Delivery Note: Called to see pt for delivery. Baby delivered spontaneously at 934am. Apgars 0,0. Hemabate given and placenta delivered spontaneously at 1205pm. Pt has minimal bleeding now. No vaginal lacerations.
[2020-05-12] MEDS ORDERED: IBUPROFEN 600 MG TAB PO SCH (12:30)
[2020-05-12 16:27] VITALS: BP 99/60; PULSE 97; TEMP 98
--- NOTE | 2020-05-12 16:47 | P.DS ---
Providers Date of admission: 05/12/20 08:38 Expected date of discharge: 05/12/20 Attending physician: Zaria Johnson Primary care physician: Stated None - Discharge Diagnosis(es) (1) Miscarriage Current Visit: No Status: Acute Hospital Course: Patient presented at 16 weeks in active labor. She underwent a normal vaginal delivery of a stillborn 16 week fetus. She did get one dose of Hemabate to deliver the placenta and stop her lochia. Her lochia is mild minimal and has been 5 hours since the placenta delivered. She denies nausea, vomiting, chest pain, shortness of breath or calf pain. She would like to be discharged home to follow-up with me in about 2 weeks. Plan - Discharge Summary Discharge Rx Participant: Yes New Discharge Prescriptions: New Ibuprofen [Motrin] 600 mg PO Q6H #30 tab No Action Cephalexin [Keflex] 500 mg PO Q6H #28 cap Albuterol Inhaler [Ventolin Hfa Inhaler] 2 puff INHALATION RT-Q4H PRN PRN Reason: Shortness Of Breath Discharge Medication List Cephalexin [Keflex] 500 mg PO Q6H #28 cap 05/10/20 [Rx] Albuterol Inhaler [Ventolin Hfa Inhaler] 2 puff INHALATION RT-Q4H PRN 05/12/20 [History] Ibuprofen [Motrin] 600 mg PO Q6H #30 tab 05/12/20 [Rx] Follow up Appointment(s)/Referral(s): Zaria Johnson DO [Doctor of Osteopathic Medicine] - 2 Weeks Discharge Disposition: HOME SELF-CARE
[2020-05-12] MEDS ORDERED: SENNOSIDES-DOCUSATE SODIUM 1 EACH TAB PO SCH (20:00)
--- NOTE | 2020-05-13 14:05 | ED ---
General Adult HPI - General Chief complaint: Vaginal Bleeding Stated complaint: 16 wks preg, vaginal bleeding and cramping Source: patient Mode of arrival: wheelchair Limitations: no limitations - History of Present Illness Initial comments: 39-year-old female currently 16 weeks with an LMP of 01/23/2020 presents to the emergency room for vaginal bleeding and cramping. Patient reports that this started 2 days ago. States that she came to the ER and had an ultrasound performed. Patient reports that it has worsened since that time. Patient states she has been bleeding as well. Patient did receive RhoGAM 2 days ago.patient denies dizziness, lightheadedness, chest pain. Patient has no other complaints at this time including shortness of breath, chest pain, nausea or vomiting, headache, or visual changes. - Related Data Home Medications Medication Instructions Recorded Confirmed Albuterol Inhaler [Ventolin Hfa 2 puff INHALATION RT-Q4H PRN 05/12/20 05/12/20 Inhaler] Previous Rx's Medication Instructions Recorded Cephalexin [Keflex] 500 mg PO Q6H #28 cap 05/10/20 Ibuprofen [Motrin] 600 mg PO Q6H #30 tab 05/12/20 Allergies Allergy/AdvReac Type Severity Reaction Status Date / Time No Known Allergies Allergy Verified 05/12/20 08:50 Review of Systems ROS Statement: Those systems with pertinent positive or pertinent negative responses have been documented in the HPI. ROS Other: All systems not noted in ROS Statement are negative. Past Medical History Past Medical History: Asthma History of Any Multi-Drug Resistant Organisms: None Reported Past Surgical History: No Surgical Hx Reported Additional Past Surgical History / Comment(s): cyst as a child Past Psychological History: No Psychological Hx Reported Smoking Status: Never smoker Past Alcohol Use History: None Reported Past Drug Use History: None Reported - Past Family History Mother Additional Family Medical History / Comment(s): mother has lymphoma- in remission General Exam Limitations: no limitations General appearance: alert, in no apparent distress Head exam: Present: atraumatic, normocephalic, normal inspection Eye exam: Present: normal appearance, PERRL, EOMI. Absent: scleral icterus, conjunctival injection, periorbital swelling ENT exam: Present: normal exam, mucous membranes moist Neck exam: Present: normal inspection, full ROM. Absent: tenderness, meningismus, lymphadenopathy Respiratory exam: Present: normal lung sounds bilaterally. Absent: respiratory distress, wheezes, rales, rhonchi, stridor Cardiovascular Exam: Present: regular rate, normal rhythm, normal heart sounds. Absent: systolic murmur, diastolic murmur, rubs, gallop, clicks GI/Abdominal exam: Present: soft, normal bowel sounds. Absent: distended, tenderness, guarding, rebound, rigid External exam: Present: normal external exam. Absent: erythema, swelling, lesions, lacerations, ecchymosis Speculum exam: Present: vaginal bleeding. Absent: normal speculum exam, erythema, vaginal discharge, cervical discharge, foreign body, tissue By manual exam: Present: adnexal tenderness, uterine tenderness. Absent: normal by manual exam, cervical motion tenderness, adnexal mass, uterine enlargement Neurological exam: Present: alert Course Vital Signs 05/12/20 05/12/20 05:00 06:04 Temperature 97.4 F L Pulse Rate 116 H 106 H Respiratory 24 18 Rate Blood Pressure 101/67 117/73 O2 Sat by Pulse 98 98 Oximetry Medical Decision Making - Medical Decision Making Patient presents initially tachycardic. Patient is visibly upset on initial presentation. She is having abdominal pain. States the cramps started Tuesday but are getting progressively worse. Patient did receive RhoGAM on Tuesday. At that time ultrasound did reveal a gestational age of 16 weeks with low lying placenta. Heart rate 166 at that time. Today pelvic exam was limited. Patient was unable to tolerate much of the exam. There was no significant bleeding however was unable to fully visualize the cervix. CBC does show leukocytosis of undetermined etiology. Partially likely reactive in nature. Patient also reportedly has a UTI from last visit. She has been unable to urinate since she arrived in the ER. CMP shows evidence of hyponatremia, could be related to dehydration as patient did have 3+ ketones in her urine on her last visit. Ultrasound today did reveal a very limited exam however patient does have active labor with the head entering the cervical canal. No amniotic fluid. C ardiac activity is noted. Dr. Johnson was contacted who is on-call for Dr. Pederson. Recommends transfer to labor and delivery. Orders were placed and administered a charge was notified for quick placement. - Lab Data Lab Results 05/12/20 05/12/20 05/12/20 Range/Units 05:22 05:22 05:22 WBC 20.1 H (3.8-10.6) k/uL RBC 4.13 (3.80-5.40) m/uL Hgb 12.7 (11.4-16.0) gm/dL Hct 35.8 (34.0-46.0) % MCV 86.8 (80.0-100.0) fL MCH 30.8 (25.0-35.0) pg MCHC 35.5 (31.0-37.0) g/dL RDW 13.9 (11.5-15.5) % Plt Count 117 L (150-450) k/uL MPV 8.2 Neutrophils % 90 % Lymphocytes % 3 % Monocytes % 5 % Eosinophils % 1 % Basophils % 0 % Neutrophils # 18.1 H (1.3-7.7) k/uL Lymphocytes # 0.5 L (1.0-4.8) k/uL Monocytes # 1.0 (0-1.0) k/uL Eosinophils # 0.3 (0-0.7) k/uL Basophils # 0.0 (0-0.2) k/uL Hyperchromasia Moderate Poikilocytosis Slight Sodium 128 L (137-145) mmol/L Potassium 3.6 (3.5-5.1) mmol/L Chloride 97 L (98-107) mmol/L Carbon Dioxide 18 L (22-30) mmol/L Anion Gap 13 mmol/L BUN 4 L (7-17) mg/dL Creatinine 0.51 L (0.52-1.04) mg/dL Est GFR (CKD-EPI)AfAm >90 (>60 ml/min/1.73 sqM) Est GFR (CKD-EPI)NonAf >90 (>60 ml/min/1.73 sqM) Glucose 132 H (74-99) mg/dL Calcium 9.1 (8.4-10.2) mg/dL Total Bilirubin 1.5 H (0.2-1.3) mg/dL AST 16 (14-36) U/L ALT 12 (4-34) U/L Alkaline Phosphatase 139 H (38-126) U/L Total Protein 6.7 (6.3-8.2) g/dL Albumin 3.7 (3.5-5.0) g/dL Blood Type A Negative Blood Type Recheck A Neg Bld Type Recheck Status No Disposition Disposition: HOME SELF-CARE Condition: Stable Is patient prescribed a controlled substance at d/c from ED?: No Time of Disposition: 08:29
== END 2020-05-12 17:08 | disposition home or self-care (01) | DRG 779 ==
LOC: 4FBP 08:38
PROVIDERS: ADMIT Obstetrics & Gynecology; ATTEND Obstetrics & Gynecology
PROC: 10E0XZZ Delivery of Products of Conception, External Approach (ICD-10-PCS; principal; 2020-05-12)
DX: O02.1 Missed abortion (principal); J45.909 Unspecified asthma, uncomplicated; O99.52 Diseases of the respiratory system complicating childbirth; Z3A.16 16 weeks gestation of pregnancy; Z79.899 Other long term (current) drug therapy; Z98.890 Other specified postprocedural states; Z80.7 Family history of other malignant neoplasms of lymphoid, hematopoietic and related tissues
CPT/HCPCS: 36415; 76815; 80053; 85025; 86900; 86901

== ENCOUNTER → 2020-05-12 | Emergency (ER) | payer BC ==
[~2020-05-12] MED LIST: ACETAMINOPHEN TAB 500 MG TAB PO STA; HYDROmorphone 0.5 MG/0.5 ML SYRINGE IVP PRN; HYDROmorphone 0.5 MG/0.5 ML SYRINGE IVP STA; NALOXONE 0.4 MG/ML 1 ML VIAL IV PRN; ONDANSETRON 4 MG/2 ML VIAL IVP PRN; ONDANSETRON 4 MG/2 ML VIAL IVP STA; SODIUM CHLORIDE 0.9% 1,000 ML IV SCH; SODIUM CHLORIDE 0.9% 500 ML 500 ML IV STA
--- NOTE | 2020-05-12 06:28 | ED ---
General Adult HPI - General Chief complaint: Vaginal Bleeding Stated complaint: 16 wks preg, vaginal bleeding and cramping Source: patient Mode of arrival: wheelchair Limitations: no limitations - History of Present Illness Initial comments: 39-year-old female currently 16 weeks with an LMP of 01/23/2020 presents to the emergency room for vaginal bleeding and cramping. Patient reports that this started 2 days ago. States that she came to the ER and had an ultrasound performed. Patient reports that it has worsened since that time. Patient states she has been bleeding as well. Patient did receive RhoGAM 2 days ago.patient denies dizziness, lightheadedness, chest pain. Patient has no other complaints at this time including shortness of breath, chest pain, nausea or vomiting, headache, or visual changes. - Related Data Home Medications Medication Instructions Recorded Confirmed No.77/Iron Asp Gly/FA 1 tab PO DAILY 07/13/16 11/16/16 [Prenate Star Tablet] Amoxicillin 500 mg PO Q8H 11/16/16 11/16/16 Previous Rx's Medication Instructions Recorded Ibuprofen [Motrin] 600 mg PO Q6HR PRN #30 tab 11/19/16 Cephalexin [Keflex] 500 mg PO Q6H #28 cap 05/10/20 Allergies Allergy/AdvReac Type Severity Reaction Status Date / Time No Known Allergies Allergy Verified 05/12/20 05:04 Review of Systems ROS Statement: Those systems with pertinent positive or pertinent negative responses have been documented in the HPI. ROS Other: All systems not noted in ROS Statement are negative. Past Medical History Past Medical History: Asthma History of Any Multi-Drug Resistant Organisms: None Reported Past Surgical History: No Surgical Hx Reported Additional Past Surgical History / Comment(s): cyst as a child Past Psychological History: No Psychological Hx Reported Smoking Status: Never smoker Past Alcohol Use History: None Reported Past Drug Use History: None Reported - Past Family History Mother Additional Family Medical History / Comment(s): mother has lymphoma- in remission General Exam Limitations: no limitations General appearance: alert, in no apparent distress Head exam: Present: atraumatic, normocephalic, normal inspection Eye exam: Present: normal appearance, PERRL, EOMI. Absent: scleral icterus, conjunctival injection, periorbital swelling ENT exam: Present: normal exam, mucous membranes moist Neck exam: Present: normal inspection, full ROM. Absent: tenderness, meningismus, lymphadenopathy Respiratory exam: Present: normal lung sounds bilaterally. Absent: respiratory distress, wheezes, rales, rhonchi, stridor Cardiovascular Exam: Present: regular rate, normal rhythm, normal heart sounds. Absent: systolic murmur, diastolic murmur, rubs, gallop, clicks GI/Abdominal exam: Present: soft, normal bowel sounds. Absent: distended, te nderness, guarding, rebound, rigid External exam: Present: normal external exam. Absent: erythema, swelling, lesions, lacerations, ecchymosis Speculum exam: Present: vaginal bleeding. Absent: normal speculum exam, erythema, vaginal discharge, cervical discharge, foreign body, tissue By manual exam: Present: adnexal tenderness, uterine tenderness. Absent: normal by manual exam, cervical motion tenderness, adnexal mass, uterine enlargement Neurological exam: Present: alert Course Vital Signs 05/12/20 05/12/20 05:00 06:04 Temperature 97.4 F L Pulse Rate 116 H 106 H Respiratory 24 18 Rate Blood Pressure 101/67 117/73 O2 Sat by Pulse 98 98 Oximetry Medical Decision Making - Medical Decision Making Patient presents initially tachycardic. Patient is visibly upset on initial presentation. She is having abdominal pain. States the cramps started Tuesday but are getting progressively worse. Patient did receive RhoGAM on Tuesday. At that time ultrasound did reveal a gestational age of 16 weeks with low lying placenta. Heart rate 166 at that time. Today pelvic exam was limited. Patient was unable to tolerate much of the exam. There was no significant bleeding however was unable to fully visualize the cervix. CBC does show leukocytosis of undetermined etiology. Partially likely reactive in nature. Patient also reportedly has a UTI from last visit. She has been unable to urinate since she arrived in the ER. CMP shows evidence of hyponatremia, could be related to dehydration as patient did have 3+ ketones in her urine on her last visit. Ultrasound today did reveal a very limited exam however patient does have active labor with the head entering the cervical canal. No amniotic fluid. Cardiac activity is noted. Dr. Johnson was contacted who is on-call for Dr. Pederson. Recommends transfer to labor and delivery. Orders were placed and administered a charge was notified for quick placement. - Lab Data Result diagrams: 05/12/20 05:22 05/12/20 05:22 Lab Results 05/12/20 05/12/20 05/12/20 Range/Units 05:22 05:22 05:22 WBC 20.1 H (3.8-10.6) k/uL RBC 4.13 (3.80-5.40) m/uL Hgb 12.7 (11.4-16.0) gm/dL Hct 35.8 (34.0-46.0) % MCV 86.8 (80.0-100.0) fL MCH 30.8 (25.0-35.0) pg MCHC 35.5 (31.0-37.0) g/dL RDW 13.9 (11.5-15.5) % Plt Count 117 L (150-450) k/uL MPV 8.2 Neutrophils % 90 % Lymphocytes % 3 % Monocytes % 5 % Eosinophils % 1 % Basophils % 0 % Neutrophils # 18.1 H (1.3-7.7) k/uL Lymphocytes # 0.5 L (1.0-4.8) k/uL Monocytes # 1.0 (0-1.0) k/uL Eosinophils # 0.3 (0-0.7) k/uL Basophils # 0.0 (0-0.2) k/uL Hyperchromasia Moderate Poikilocytosis Slight Sodium 128 L (137-145) mmol/L Potassium 3.6 (3.5-5.1) mmol/L Chloride 97 L (98-107) mmol/L Carbon Dioxide 18 L (22-30) mmol/L Anion Gap 13 mmol/L BUN 4 L (7-17) mg/dL Creatinine 0.51 L (0.52-1.04) mg/dL Est GFR (CKD-EPI)AfAm >90 (>60 ml/min/1.73 sqM) Est GFR (CKD-EPI)NonAf >90 (>60 ml/min/1.73 sqM) Glucose 132 H (74-99) mg/dL Calcium 9.1 (8.4-10.2) mg/dL Total Bilirubin 1.5 H (0.2-1.3) mg/dL AST 16 (14-36) U/L ALT 12 (4-34) U/L Alkaline Phosphatase 139 H (38-126) U/L Total Protein 6.7 (6.3-8.2) g/dL Albumin 3.7 (3.5-5.0) g/dL Blood Type A Negative Blood Type Recheck A Neg Bld Type Recheck Status No Disposition Clinical Impression: Miscarriage, Hyponatremia, Leukocytosis Disposition: ADMITTED IP TO THIS HOSP Is patient prescribed a controlled substance at d/c from ED?: No Referrals: Joaquin Garcia III, MD [Primary Care Provider] - 1-2 days Time of Disposition: 08:29
[2020-05-12 06:33] VITALS: RESP 18
[2020-05-12 08:31] VITALS: BP 117/78; PULSE 89; TEMP 98.6
--- NOTE | 2020-06-03 09:30 | ED ---
General Adult HPI - General Source: patient, RN notes reviewed Mode of arrival: wheelchair Limitations: no limitations <Jurgen Cabello - Last Filed: 06/03/20 09:30> <Elidia Vallejo - Last Filed: 06/06/20 12:14> - General Chief complaint: Vaginal Bleeding Stated complaint: 16 wks preg, vaginal bleeding and cramping - History of Present Illness Initial comments: 39-year-old female presents to the emergency room for a chief complaint of a bdominal pain. Patient states she is 16 weeks . Patient states she started to have vaginal bleeding as well as abdominal pain. States it has progressively worsened. Denies lightheadedness. Denies syncope. patient is concerned she may be miscarrying. Patient has no other complaints at this time including shortness of breath, chest pain, nausea or vomiting, headache, or visual changes. (Jurgen Cabello) - Related Data Home Medications Medication Instructions Recorded Confirmed Albuterol Inhaler [Ventolin Hfa 2 puff INHALATION RT-Q4H PRN 05/12/20 05/12/20 Inhaler] Previous Rx's Medication Instructions Recorded Cephalexin [Keflex] 500 mg PO Q6H #28 cap 05/10/20 Ibuprofen [Motrin] 600 mg PO Q6H #30 tab 05/12/20 Allergies Allergy/AdvReac Type Severity Reaction Status Date / Time No Known Allergies Allergy Verified 05/12/20 08:50 Review of Systems ROS Other: All systems not noted in ROS Statement are negative. <Jurgen Cabello - Last Filed: 06/03/20 09:30> ROS Other: All systems not noted in ROS Statement are negative. <Elidia Vallejo - Last Filed: 06/06/20 12:14> ROS Statement: Those systems with pertinent positive or pertinent negative responses have been documented in the HPI. Past Medical History Past Medical History: Asthma History of Any Multi-Drug Resistant Organisms: None Reported Past Surgical History: No Surgical Hx Reported Additional Past Surgical History / Comment(s): cyst as a child Past Psychological History: No Psychological Hx Reported Smoking Status: Never smoker Past Alcohol Use History: None Reported Past Drug Use History: None Reported - Past Family History Mother Additional Family Medical History / Comment(s): mother has lymphoma- in remission <Jurgen Cabello - Last Filed: 06/03/20 09:30> General Exam Limitations: no limitations General appearance: alert, in no apparent distress Head exam: Present: atraumatic, normocephalic, normal inspection Eye exam: Present: normal appearance, PERRL, EOMI. Absent: scleral icterus, conjunctival injection, periorbital swelling ENT exam: Present: normal exam, mucous membranes moist Neck exam: Present: normal inspection. Absent: tenderness, meningismus, lymphadenopathy Respiratory exam: Present: normal lung sounds bilaterally. Absent: respiratory distress, wheezes, rales, rhonchi, stridor Cardiovascular Exam: Present: regular rate, normal rhythm, normal heart sounds. Absent: systolic murmur, diastolic murmur, rubs, gallop, clicks GI/Abdominal exam: Present: soft, normal bowel sounds. Absent: distended, tenderness, guarding, rebound, rigid External exam: Present: normal external exam. Absent: erythema, swelling, lesions, lacerations, ecchymosis Speculum exam: Present: vaginal bleeding (mild). Absent: normal speculum exam, erythema, vaginal discharge, cervical discharge, foreign body, tissue, laceration, other <Jurgen Cabello P - Last Filed: 06/03/20 09:30> Course Vital Signs 05/12/20 05/12/20 05/12/20 05:00 06:04 08:30 Temperature 97.4 F L 98.6 F Pulse Rate 116 H 106 H 89 Respiratory 24 18 18 Rate Blood Pressure 101/67 117/73 117/78 O2 Sat by Pulse 98 98 99 Oximetry Medical Decision Making - Lab Data Result diagrams: 05/12/20 05:22 05/12/20 05:22 <Jurgen Cabello P - Last Filed: 06/03/20 09:30> - Lab Data Result diagrams: 05/12/20 05:22 05/12/20 05:22 <Elidia Vallejo - Last Filed: 06/06/20 12:14> - Medical Decision Making Report was previously canceled for unknown reason. Therefore I'm repeating this report at the time I was notified. HPI and Physical exam as documented. I did speak with Dr. Johnson who came to the ER, recommends patient be transferred to mother baby unit as she is actively miscarrying. (Jurgen Cabello) I was available for consultation in the emergency department. The history and physical exam were done by the midlevel provider. I was consulted for this patients care. I reviewed the case with the midlevel provider and based on their presentation of the patient, I agree with the assessment, medical decision making and plan of care as documented. Chart was dictated using [employer] dictation software. Attempts were made to correct any dictation errors however some typographical errors may persist. Patient was seen during a national state of emergency due to the Covid-19 pandemic. (Elidia Vallejo) - Lab Data Lab Results 05/12/20 05/12/20 05/12/20 Range/Units 05:22 05:22 05:22 WBC Cancelled RBC Cancelled Hgb Cancelled Hct Cancelled MCV Cancelled MCH Cancelled MCHC Cancelled RDW Cancelled Plt Count Cancelled MPV Cancelled Neutrophils % Cancelled Lymphocytes % Cancelled Monocytes % Cancelled Eosinophils % Cancelled Basophils % Cancelled Neutrophils # Cancelled Lymphocytes # Cancelled Monocytes # Cancelled Eosinophils # Cancelled Basophils # Cancelled Hypochromasia Cancelled Hyperchromasia Cancelled Poikilocytosis Cancelled Anisocytosis Cancelled Microcytosis Cancelled Macrocytosis Cancelled Sodium Cancelled Potassium Cancelled Chloride Cancelled Carbon Dioxide Cancelled Anion Gap Cancelled BUN Cancelled Creatinine Cancelled Est GFR (CKD-EPI)AfAm Cancelled Est GFR (CKD-EPI)NonAf Cancelled Glucose Cancelled Calcium Cancelled Total Bilirubin Cancelled AST Cancelled ALT Cancelled Alkaline Phosphatase Cancelled Total Protein Cancelled Albumin Cancelled Blood Type Cancelled Blood Type Recheck Cancelled Bld Type Recheck Status Cancelled Disposition Is patient prescribed a controlled substance at d/c from ED?: No Time of Disposition: 09:30 <Jurgen Cabello - Last Filed: 06/03/20 09:30> <Elidia Vallejo - Last Filed: 06/06/20 12:14> Clinical Impression: Miscarriage, Hyponatremia, Leukocytosis Disposition: ADMITTED IP TO THIS [facility] Referrals: Joaquin Garcia III, MD [Primary Care Provider] - 1-2 days
== END | disposition other institution (70) ==
LOC: EC 04:56 → 6PED 08:23 → UNDOADMOB 08:23 → EC 08:32 → 6PED 19:00
DX: O03.9 Complete or unspecified spontaneous abortion without complication (principal); O08.5 Metabolic disorders following an ectopic and molar pregnancy; D72.829 Elevated white blood cell count, unspecified; J45.909 Unspecified asthma, uncomplicated; O99.512 Diseases of the respiratory system complicating pregnancy, second trimester; Z3A.16 16 weeks gestation of pregnancy
CPT/HCPCS: 36415; 76815; 80053; 85025; 86900; 86901; 96361; 96374; 96376; 99284

== ENCOUNTER → 2020-07-24 | Outpatient (CLI) | payer BC ==
[2020-07-25 01:51] LABS: Cardiolipin Ab IgG Interp NEGATIVE (NEGATIVE); Cardiolipin Ab IgM Interp NEGATIVE (NEGATIVE); Cardiolipin IgM Antibody 11.5 U/mL
[2020-07-25 08:49] LABS: Protein S Antigen 97 % (50 - 140)
[2020-07-25 10:02] LABS: APTT 44 Sec(s) (<43); APTT 1:1 Mix 40 Sec(s) (<43); Dilute Russell Viper Venom 39 Sec(s) (<44)
== END ==
LOC: LABWHC1 15:09
PROVIDERS: ATTEND Obstetrics & Gynecology
DX: N96 Recurrent pregnancy loss (principal)
CPT/HCPCS: 36415; 81241; 85303; 85305; 85613; 85730; 85732; 86038; 86146; 86147